=== PATIENT | male | born 1955 | race Caucasian/White ===

== ENCOUNTER → 2017-10-26 | Outpatient (CLI) | payer OTHER ==
[~2017-10-26] MED LIST: ASPIRIN325 MG PO; IBUPROFEN800 MG PO; LIDODERM 5% P1 PATCH TD
== END | disposition home or self-care (01) ==
LOC: RAD 09:25
DX: M17.0 Bilateral primary osteoarthritis of knee (principal)
CPT/HCPCS: 73565